=== PATIENT | female | born 1950 | race Caucasian/White ===

== ENCOUNTER 2018-06-16 12:10 | Emergency (ER) | payer MEDICARE, OTHER ==
[~2018-06-16] VITALS: Ht 165.1 cm; Wt 45.0 kg
[~2018-06-16 12:10] MED LIST: AMOX1TAB64 PO; DIAZ5TAB PO; MORP30TA3 PO; MORP60TA34 PO; OXYC-307 PO; OXYC20TA2 PO; OXYC5CAP2 PO; POLY17PO5 PO; TRAZ-137 PO; TRAZ150T62 PO; UMEC1DIS INH
--- NOTE | 2018-06-16 12:28 | NUR ---
biba for near syncopal event; pt reports generalized weakness x 2 weeks, pt states "feeling like I'm going to pass out" while shopping at [employer] today. 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 all monitors in place. call light in reach. EKG completed by RAHEEM Soler. Pt denies pain. pt is a&ox4, neuro intact. xray at bedside at this time.
--- NOTE | 2018-06-16 12:38 | NUR ---
pt amb to br and back to room with steady gait for ua. pt provided warm blankets.
[2018-06-16 12:44] VITALS: BP 159/86
[2018-06-16 12:58] LABS: BASOPHILS # (AUTO) 0.13 x10^3/uL (0-0.1); BASOPHILS % (AUTO) 2 % (0-1); EOSINOPHILS # (AUTO) 0.12 x10^3/uL (0-0.4); EOSINOPHILS % (AUTO) 2 % (1-7); LYMPHOCYTES # (AUTO) 0.95 x10^3/uL (1-3.4); LYMPHOCYTES % (AUTO) 14 % (22-44); MD NO; MEAN CORPUSCULAR HEMOGLOBIN 35.1 pg (27.0-34.8); MEAN CORPUSCULAR HGB CONC 34.3 g/dL (32.4-35.8); MEAN CORPUSCULAR VOLUME 102.2 fL (80-100); MEAN PLATELET VOLUME 6.4 fL (7.4-10.4); MONOCYTES % (AUTO) 10 % (2-9); NEUTROPHILS # (AUTO) 5.13 x10^3/uL (1.8-6.8); NEUTROPHILS % (AUTO) 73 % (42-75); PLATELET COUNT 359 x10^3/uL (130-400); RED BLOOD COUNT 4.04 x10^6/uL (3.82-5.3); RED CELL DISTRIBUTION WIDTH 13.3 % (9.6-15.2)
[2018-06-16 13:02] LABS: INTERNATIONAL NORMALIZED RATIO 1.01 (0.93-1.1); PROTHROMBIN TIME 10.7 Seconds (9.6-11.5)
[2018-06-16 13:05] LABS: ALANINE AMINOTRANSFERASE 25 U/L (12-78); ALBUMIN 3.5 g/dL (3.4-5.0); ANION GAP 6 mmol/L (5-15); CALCIUM 8.8 mg/dL (8.5-10.1); CHLORIDE 103 mmol/L (98-107); CREATININE 0.74 mg/dL (0.55-1.02)
--- NOTE | 2018-06-16 13:06 | NUR ---
PT REPORTS TO RN: "I'M HAVING AN ANXIETY ATTACK, I'VE BEEN OUT OF MY XANAX FOR 3 DAYS." REQ XANAX FROM . LAW NOTIFIED. NO FURTHER ORDERS RECEIVED AT THIS TIME.
[2018-06-16 13:09] LABS: ALKALINE PHOSPHATASE 81 U/L (45-117); BILIRUBIN,TOTAL 0.7 mg/dL (0.2-1.0); TOTAL PROTEIN 6.6 g/dL (6.4-8.2); TROPONIN I < 0.015 ng/mL (0.000-0.045)
[2018-06-16 13:11] LABS: CULTURE INDICATED? YES; MICROSCOPIC INDICATED
--- NOTE | 2018-06-16 14:11 | NUR ---
THIS RN WENT TO DC PT AND FOUND ROOM EMPTY WITH PIV ON FLOOR (TIP INTACT). ALL PT BELONGINGS GONE EXCEPT CANE. CANE LABELED WITH PT STICKER AND TURNED INTO SECURITY FOR SAFEKEEPING.
== END 2018-06-16 14:11 | disposition home or self-care (01) ==
LOC: ED 13:40
DX: R55 Syncope and collapse (principal); R53.1 Weakness
CPT/HCPCS: 36415; 71045; 80053; 81001; 84443; 84484; 85025; 85610; 85730; 87086; 93005; 99284

== ENCOUNTER 2019-12-23 14:21 | Emergency (ER) | payer MEDICARE ==
[~2019-12-23] VITALS: Ht 167.6 cm; Wt 52.0 kg
[~2019-12-23 14:21] MED LIST changes: +MORP-30 PO; -MORP30TA3 PO; -TRAZ-137 PO; +TRAZ-175 PO
[2019-12-23 14:28] VITALS: BP 108/75
[2019-12-23] MEDS ORDERED: MORPHINE SULFATE 4 MG/ML, 1ML ONE ×2 (14:52→16:48)
[2019-12-23] MEDS ORDERED: morphine SULFATE 10 MG/ML, 1ML IVPush ONE (15:00)
[2019-12-23 15:21] LABS: BASOPHILS # (AUTO) 0.02 x10^3/uL (0-0.1); BASOPHILS % (AUTO) 0 % (0-1); EOSINOPHILS # (AUTO) 0.09 x10^3/uL (0-0.4); EOSINOPHILS % (AUTO) 1 % (1-7); LYMPHOCYTES # (AUTO) 0.94 x10^3/uL (1-3.4); LYMPHOCYTES % (AUTO) 12 % (22-44); MD NO; MEAN CORPUSCULAR HGB CONC 32.9 g/dL (32.4-35.8); MEAN CORPUSCULAR VOLUME 103.4 fL (80-100); MEAN PLATELET VOLUME 7.2 fL (7.4-10.4); MONOCYTES # (AUTO) 0.48 x10^3/uL (0.2-0.8); MONOCYTES % (AUTO) 6 % (2-9); NEUTROPHILS # (AUTO) 6.09 x10^3/uL (1.8-6.8); NEUTROPHILS % (AUTO) 80 % (42-75); PLATELET COUNT 190 x10^3/uL (130-400); RED BLOOD COUNT 4.38 x10^6/uL (3.82-5.3); RED CELL DISTRIBUTION WIDTH 14.7 % (9.6-15.2)
[2019-12-23 15:31] LABS: ALBUMIN 3.6 g/dL (3.4-5.0); ANION GAP 4 mmol/L (5-15); CHLORIDE 103 mmol/L (98-107); CREATININE 0.72 mg/dL (0.55-1.02)
[2019-12-23 15:43] LABS: INTERNATIONAL NORMALIZED RATIO 0.89 (0.93-1.1); PROTHROMBIN TIME 9.4 Seconds (9.6-11.5)
--- NOTE | 2019-12-23 15:56 | NUR ---
UPDATED SON ABOUT PT POC. WILL CALL SON BACK WHEN PT IS TO BE DISCHARGED.
[2019-12-23 16:02] LABS: MICROSCOPIC AUTO
--- NOTE | 2019-12-23 16:08 | NUR ---
ALL RESULTS ARE BACK AT THIS TIME. CHART UP FOR RECHECK.
[2019-12-23] MEDS ORDERED: MORPHINE SULFATE 4 MG/ML, 1ML IVPush ONE (17:00)
== END 2019-12-23 17:30 | disposition home or self-care (01) ==
LOC: ED 16:18
DX: S42.211A Unspecified displaced fracture of surgical neck of right humerus, initial encounter for closed fracture (principal); J44.9 Chronic obstructive pulmonary disease, unspecified; F17.200 Nicotine dependence, unspecified, uncomplicated; Z90.89 Acquired absence of other organs; W18.30XA Fall on same level, unspecified, initial encounter; Y93.89 Activity, other specified; Y92.009 Unspecified place in unspecified non-institutional (private) residence as the place of occurrence of the external cause; Y99.8 Other external cause status
CPT/HCPCS: 36415; 71045; 73060; 80048; 81001; 82040; 85025; 85610; 85730; 96374; 96376; 99284; J2270

== ENCOUNTER → 2020-01-10 | Outpatient (CLI) | payer MEDICARE | END | disposition home or self-care (01) | LOC: CFH 13:34 | PROVIDERS: ATTEND Physician Assistant | DX: S42.241A 4-part fracture of surgical neck of right humerus, initial encounter for closed fracture (principal); X58.XXXA Exposure to other specified factors, initial encounter; Y93.89 Activity, other specified; Y92.89 Other specified places as the place of occurrence of the external cause; Y99.8 Other external cause status ==

== ENCOUNTER 2021-03-05 13:38 | Observation (INO) | payer MEDICARE ==
[~2021-03-05] VITALS: Ht 166.4 cm; Wt 44.1 kg
[2021-03-05 15:32] VITALS: BP 94/57
== END 2021-03-06 23:59 | disposition still patient (30) ==
LOC: SDC 13:38 → ORIP 20:59 → 4NE 21:45
PROVIDERS: ADMIT Surgery; ATTEND Surgery
DX: C50.912 Malignant neoplasm of unspecified site of left female breast (principal); Z20.822 Contact with and (suspected) exposure to COVID-19; C50.911 Malignant neoplasm of unspecified site of right female breast; J44.9 Chronic obstructive pulmonary disease, unspecified; R64 Cachexia; G89.29 Other chronic pain; F17.200 Nicotine dependence, unspecified, uncomplicated; Z17.1 Estrogen receptor negative status [ER-]; Z79.899 Other long term (current) drug therapy